=== PATIENT | male | born 1940 | race Caucasian/White ===

== ENCOUNTER 2016-10-01 14:28 | Outpatient (RCR) | payer OTHER, MEDICARE, SELFPAY | END 2016-10-01 15:00 | disposition home or self-care (01) | LOC: PT 14:28 | PROVIDERS: Family Provider Internal Medicine; PCP Internal Medicine; Visit Provider Family Medicine | DX: M54.5 Low back pain (principal); G89.29 Other chronic pain | CPT/HCPCS: 97162; G8978; G8981; G8982 ==

== ENCOUNTER 2018-05-22 13:30 | Outpatient (RCR) | payer MEDICARE, OTHER, SELFPAY ==
--- NOTE | 2018-01-14 15:17 | HP.PTEVAL ---
Patient's Visit Information RIMA PASTOR is a 77 year old M referred to Physical Therapy by [facility] with a diagnosis of Acute right hip pain. Date of Evaluation: 01/14/18 Physical Therapist: Brendon Topete - Visit Plan Frequency: 2x /Week Duration: 4 Weeks Plan: Plan to see 2x week for 4 weeks - Subjective Findings: MR Pastor states that he has had long standing right hip let pain. Approximately one week ago he was diving off the swimming pool blocks and noticed immediate onset of r hip let pain. At times its difficult for him to walk and do normal activities. - Pain Right Hip Pain Intensity (Out of 10): 4 Pain Intensity Range: 1, 6 Comment: Depends on activity - Objective MR Pastor is a pleasant 77 yo that I have treated over jaswinder years. Today he said he drove off the diving board at the pool and noticed immediate right leg pain. Hip ROM WFL for a pain his age. No patient with end range flexion extension of internal external rotation. Point tenderness over upper lumber spine and L5-S1. Dimished R achilles DTR all other Patella achillee and Posterior Tib 3/3. 4/5 Weakness notived with R v L hamstring curl. No pain with hip flexion, adduction abduction. Point tenderness over R ishial tuberosity more laterally, point tenderness in muscle belly of bicep femoris and lateral fiber as they attach to ITB. Negative SLR or Slump test at this time. - Special Tests R Hip Scour: Negative R Hip Quadrant - Intraarticular Pathology: Negative R Hip BAKARI - Intraarticular Pathology: Negative R Hip FADDIR - Labrum: Negative - Goals Goal 1:: Reduce pain to 2-3/10 with notmal daily acitviites Goal Time Frame: 2 Weeks Goal 2:: Return demo HEP next visit Goal Time Frame: 1 Week Goal 3:: Use modalities to decrease pain and improve function Goal Time Frame: 2 Weeks Goal 4:: Initiate a light strengthening program in 2 weeks Goal Time Frame: 2-4 Weeks - Rehabilitation Potential Physical Therapy Diagnosis: Right hamstring bicep femoris strain perhaps partial tear of long head Rehabilitation Potential: Good - Anticipated Interventions Patient/Client Instruction: Educate patient on: Condition, Plan of Care For the Purpose of:: To decrease pain, To decrease swelling/inflammation, To increase ROM, To improve gait and locomotor functions Therapeutic Exercise to Include: Strength training, Endurance training For the Purpose of:: To decrease pain, To decrease swelling/inflammation, To improve muscle performance and motor function, To improve gait and locomotor functions Manual Therapy Techniques to Include: Massage, Scar massage For the Purpose of:: To decrease pain, To decrease swelling/inflammation, To increase tolerance to activity/condition/position Ultrasound (thermal/non thermal): Yes Thank you for the opportunity to evaluate your patient. For Medicare and Medicare HMO plans, please review the plan of care and approve it. It will need to be FAXED BACK to us at [phone] for Medicare purposes. For Medicare only, by signing this I certify the plan of care. Please let me know if there are questions or concerns regarding this plan of care. Physician Signature: Date:
--- NOTE | 2018-05-22 14:48 | HP.PTDCSUM_ITS ---
HP - PT D/C Summary It has been my pleasure to treat RIMA BANDA under orders from Mary Morris, ABBE-C, for the diagnosis of Acute right hip pain for a total of 7 visit(s). Discharge Date: Please see the following information for a summary of their discharge status. - Subjective Subjective: I had do stairstepper for 10 minutes then bike for 10 but then I get disfuse pain in my leg. - Pain Right Hip Pain Intensity (Out of 10): 3 - Overall Improvement % Improvement: 55 - Objective Objective/Function: MMT r 64.7 l69.2 flexin. r 55 l 70.8. prone l 42 r 36. ROM 90/90 164 r 150 L. Swimming 800-1000 meters 3xweek, can walk for 1 mile then hurts - Goals Goal 1:: Reduce pain to 2-3/10 with normal daily acitviites Goal Progress: Goal Met Goal 2:: Return demo [facility] next visit Goal Progress: Goal Met Goal 3:: Use modalities to decrease pain and improve function Goal Progress: Goal Met Goal 4:: Initiate a light strengthening program in 2 weeks Goal Progress: Progressing - Plan Plan: Discharge to [facility]. Following up with a vascular surgeon and potentially an orthopod to see if hamstring can be reattached. - D/C Information If there are questions or concerns regarding this patient's physical therapy, please feel free to call me at [phone]. Thank you for the referral of this patient. Sincerely, Brendon Topete, PT, TABITHA, SCS, CSCS
== END 2018-05-22 19:00 | disposition home or self-care (01) ==
LOC: PT 13:30
PROVIDERS: Family Provider Internal Medicine; PCP Internal Medicine; Referring Provider Nurse Practitioner Primary Care; Visit Provider Nurse Practitioner Primary Care
DX: M25.551 Pain in right hip (principal)
CPT/HCPCS: 97035; 97110; 97140; 97162; 97164

== ENCOUNTER 2020-06-27 15:00 | Outpatient (RCR) | payer MEDICARE, OTHER, SELFPAY ==
--- NOTE | 2020-06-17 12:17 | HP.PTEVAL ---
Patient's Visit Information RIMA BANDA is a 80 year old M referred to Physical Therapy by Dr. Royce Buck MD with a diagnosis of T/S pain. Date of Evaluation: 06/17/20 Physical Therapist: Julio Roberts, PT, ATC - Visit Plan Frequency: 2-3x /Week Duration: 4 Weeks Plan: Postural edu, scap stab ex's, t/s stab ex's, DTR, UBE, and HEP. US with for pain - Subjective Pt reports he has had T/S pain intermittently for 3 mos. Pt reports he experiences the pain mostly when he is swinging his golf clubs, and when he is swimming. Pt notes when he was down in [place], he really didn't feel the pain secondary to the warm weather. Pt notes now that he is back in [place], the pain is more severe. Pt reports he does get pain when he takes a deep breath at times. Pt notes no UE/LE/trunk tingling or numbness. Occasional sleep difficulty at this time. Pt is still working occasionally as an commercial litigation attorney. Pt has had no Dx tests at this time. Pt notes he believes what caused this episode was hitting too many balls at once (300 at a time) 0/10 pain at rest, 5/10 pain at worst - Pain L mid scap region Pain Intensity (Out of 10): 0 Pain Intensity Range: 5 - Objective Neuro: B UE sensation is WNL to light touch. B bicepital reflex= 2/3. MMT: B UE's are grossly 5/5 throughout. Scapular retraction is rated at 4-/5 and painful. ROM: mild limitations with L rotation and extension of the T/S. All other B UE motions are WNL. Palpation: Pt has muscle guarding on the medial scap border of L shoulder. No obvious deformity at this time. - Goals Goal 1:: Decrease t/s pain x 50% to aid with sleep Goal Time Frame: 4-6 Weeks Goal 2:: Increase scapular strength to 5/5 throughout to aid with sporting activities Goal Time Frame: 4-6 Weeks Goal 3:: I with HEP - Rehabilitation Potential Physical Therapy Diagnosis: Pt has t/s pain, scapular retraction weakness, and limited t/s ROM secondary to weaknes in the scapular region Rehabilitation Potential: Good - Anticipated Interventions Patient/Client Instruction: Educate patient on: Condition, Plan of Care For the Purpose of:: To improve self management Therapeutic Exercise to Include: Strength training, Postural training, Flexibilty training, Scapular Strength/Stabilization For the Purpose of:: To decrease pain, To improve muscle performance and motor function Ultrasound (thermal/non thermal): Yes For the Purpose of:: To decrease pain Thank you for the opportunity to evaluate your patient. For Medicare and Medicare HMO plans, please review the plan of care and approve it. It will need to be FAXED BACK to us at [phone] for Medicare purposes. For Medicare only, by signing this I certify the plan of care. Please let me know if there are questions or concerns regarding this plan of care. Physician Signature: Date:
--- NOTE | 2020-09-16 07:50 | HP.PT.NRP ---
RIMA BANDA was seen in my office for initial evaluation on 06/17/20. The following Plan of Care was established for this patient: Initial Frequency: 2-3x /Week Initial Duration: 4 Weeks Patient/Client Instruction: Educate patient on: Condition, Plan of Care For the Purpose of:: To improve self management Therapeutic Exercise to Include: Strength training, Postural training, Flexibilty training, Scapular Strength/Stabilization For the Purpose of:: To decrease pain, To improve muscle performance and motor function Ultrasound (thermal/non thermal): Yes For the Purpose of:: To decrease pain This patient was last seen in our office . Pertinent comments regarding their Physical therapy will appear below: Pt was treated for 3 visits for thoracic spine pain through the date of 06/27/2020. Pt has not returned through todays date, and is discontinued at this time. At this point I will be discontinuing this patient from physical therapy. I would be happy to see this patient again in the future if found appropriate by the physician. Thank you! Julio Roberts, PT, ATC
== END 2020-06-27 19:00 | disposition home or self-care (01) ==
LOC: PT 15:00
PROVIDERS: PCP Family Medicine; Referring Provider Family Medicine; Visit Provider Family Medicine
DX: M54.6 Pain in thoracic spine (principal); G89.29 Other chronic pain
CPT/HCPCS: 97110; 97161